=== PATIENT | male | born 1975 | race Caucasian/White ===

== ENCOUNTER 2020-05-19 16:55 | Emergency (ER) | payer OTHER ==
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
== END 2020-05-19 19:05 | disposition home or self-care (01) ==
LOC: KA.ED 16:55
DX: M79.662 Pain in left lower leg (principal); V59.9XXA Occupant (driver) (passenger) of pick-up truck or van injured in unspecified traffic accident, initial encounter
CPT/HCPCS: 72100; 72125; 73590-LT; 99283; 99284-25; Q3014

== ENCOUNTER 2022-01-05 00:30 | Emergency (ER) | payer OTHER ==
[2022-01-05] MEDS: Ketorolac 60 MG/2 ML SDV IM ONE (01:16)
== END 2022-01-05 02:22 | disposition home or self-care (01) ==
LOC: KA.ED 00:30
DX: M54.2 Cervicalgia (principal); R51.9 Headache, unspecified; I10 Essential (primary) hypertension; E78.00 Pure hypercholesterolemia, unspecified; F41.9 Anxiety disorder, unspecified; Z79.899 Other long term (current) drug therapy; W00.9XXA Unspecified fall due to ice and snow, initial encounter
CPT/HCPCS: 70450; 72125; 96372; 99284; 99284-25; J1885